=== PATIENT | female | born 1940 | race Caucasian/White ===

== ENCOUNTER 2017-01-10 21:13 | Emergency (ER) | payer OTHER ==
[~2017-01-10] VITALS: Ht 162.6 cm; Wt 77.9 kg
[~2017-01-10 21:13] MED LIST: ALPHAGAN P100 DROP/5 BOTH EYES; CEFTIN500 MG PO; COREG6.25 M1 PO; COZAAR25 MG PO; CRESTOR40 MG PO; DEPAKOTE ER500 MG PO; DETROL LA4 MG PO; DORZOLAMIDE-TIM10 ML BOTH EYES; FLORASTOR250 MG PO; HUMALOG100 UNIT/1 SC; HYDROCODON-ACE1 EAC7 PO; HYDROCODON-ACE1 EACH PO; LANTUS 3 M100 UNITS1 SC; LASIX20 MG PO; NEURONTIN100 MG PO; PLAVIX75 MG PO; PREVACID30 MG PO; TOLTERODINE TART4 MG PO; VITAMIN D-32000 UNI1 PO; VITAMIN D31000 UNIT PO; ZETIA10 MG PO
[2017-01-10] MEDS ORDERED: TYLENOL WITH C1 EACH PO (23:13)
[2017-01-10 23:41] VITALS: BP 158/71
== END 2017-01-10 23:42 | disposition home or self-care (01) ==
LOC: EME 21:13
DX: M25.531 Pain in right wrist (principal); M25.532 Pain in left wrist; M25.561 Pain in right knee; M25.562 Pain in left knee; M54.2 Cervicalgia; W18.30XA Fall on same level, unspecified, initial encounter; E11.9 Type 2 diabetes mellitus without complications; F03.90 Unspecified dementia, unspecified severity, without behavioral disturbance, psychotic disturbance, mood disturbance, and anxiety; I10 Essential (primary) hypertension; E78.5 Hyperlipidemia, unspecified; G89.29 Other chronic pain; Z79.4 Long term (current) use of insulin; Z88.8 Allergy status to other drugs, medicaments and biological substances
CPT/HCPCS: 72170; 73110; 99281; 99285; J1885